=== PATIENT | male | born 1965 | race Caucasian/White ===

== ENCOUNTER 2016-09-09 13:45 | Emergency (ER) | payer BC ==
[2016-09-09] MEDS ORDERED: methylPREDNISolone Sodium Succinate 125 MG/2 ML SDV IVPUSH ONE (13:57)
[2016-09-09] MEDS ORDERED: diphenhydrAMINE 50 MG/ML SDV IVPUSH ONE (13:57)
--- NOTE | 2016-09-09 14:02 | EDM.PDOC ---
ED HPI GENERAL MEDICAL PROBLEM - General Chief Complaint: Allergic Reaction Stated Complaint: BEE STING Time Seen by Provider: 09/09/16 13:49 Source of Information: Reports: Patient History Limitations: Reports: No Limitations - History of Present Illness INITIAL COMMENTS - FREE TEXT/NARRATIVE: The patient is a 51-year-old male who comes in for evaluation for a bee sting. The patient was stung by a bee about 45 minutes ago. He does have a severe bee sting allergy. He gave himself an EpiPen autoinjector dose. States he feels completely fine now. He was stung in the left just near the left ear. States that he was able to remove the stinger. He had some feeling of tightness in his chest but use the EpiPen pretty quickly and states that all of the symptoms have resolved and he feels completely normal at this time. No throat swelling or difficulty speaking or swallowing. No wheezing. No shortness of breath. No itching. No complaint. 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: Other (see below) Other Treatments HIGHER EDUCATION ADMINISTRATOR: epi pen - Related Data Allergies Allergy/AdvReac Type Severity Reaction Status Date / Time BEE STING Allergy Bradycardia Uncoded 12/29/15 18:18 Home Meds: Home Meds EPINEPHrine [Epipen 2-Jesus] 0.3 mg IJ ASDIRECTED PRN #1 kit 12/29/15 [Rx] EPINEPHrine [Epipen] 0.3 mg IM DAILY PRN #1 unit 09/09/16 [Rx] Past Medical History HEENT History: Reports: Impaired Vision Other HEENT History: glasses Other Musculoskeletal History: left hand surgery as a child - Past Surgical History HEENT Surgical History: Reports: Naso-Sinus Surgery GI Surgical History: Reports: Hernia, Abdominal Musculoskeletal Surgical History: Reports: ORIF, Shoulder Surgery Social & Family History - Family History Family Medical History: Noncontributory - Tobacco Use Smoking Status *Q: Former Smoker Years of Tobacco use: 10 Packs/Tins Daily: 1 Month Tobacco Last Used: 1993 - Caffeine Use Caffeine Use: Reports: Coffee - Recreational Drug Use Recreational Drug Use: No - Living Situation & Occupation Living situation: Reports: , with Spouse Occupation: Employed ED ROS ALLERGIC REACTION - Review of Systems Review Of Systems: See Below Constitutional: Denies: Fever HEENT: Reports: No Symptoms Respiratory: Denies: Shortness of Breath, Cough Cardiovascular: Denies: Chest Pain Endocrine: Reports: No Symptoms GI/Abdominal: Denies: Vomiting Musculoskeletal: Reports: No Symptoms Skin: Denies: Rash Neurological: Reports: No Symptoms ED EXAM GENERAL NO PERIP PULSE - Physical Exam Exam: See Below Exam Limited By: No Limitations General Appearance: Alert, WD/WN, No Apparent Distress Eye Exam: Bilateral Eye: PERRL Ears: Normal External Exam Nose: Normal Inspection, Normal Mucosa, No Blood Throat/Mouth: Normal Inspection, Normal Oropharynx, Normal Voice, No Airway Compromise. No: Inflammation Head: Atraumatic, Normocephalic Neck: Normal Inspection, Supple, Non-Tender, Full Range of Motion Respiratory/Chest: No Respiratory Distress, Lungs Clear, Normal Breath Sounds, No Accessory Muscle Use, Chest Non-Tender Cardiovascular: Normal Peripheral Pulses, Regular Rate, Rhythm, No Edema GI/Abdominal: Soft, Non-Tender, No Distention Neurological: Alert, Oriented, Normal Cognition Psychiatric: Normal Affect, Normal Mood Skin Exam: Warm, Dry, Intact, Normal Color, No Rash Course - Vital Signs Last Recorded V/S: Last Vital Signs Temp 37.2 C 09/09/16 13:49 Pulse 98 09/09/16 13:49 Resp 16 09/09/16 13:49 BP 164/90 H 09/09/16 13:49 Pulse Ox 94 L 09/09/16 13:49 - Orders/Labs/Meds Meds: Medications Discontinued Medications Generic Name Dose Route Start Last Admin Trade Name Freq PRN Reason Stop Dose Admin Diphenhydramine HCl 50 mg 09/09/16 13:57 09/09/16 14:08 Benadryl IVPUSH 09/09/16 13:58 50 mg ONETIME ONE Administration Methylprednisolone Sodium Succinate 125 mg 09/09/16 13:57 09/09/16 14:03 Solu-Medrol IVPUSH 09/09/16 13:58 125 mg ONETIME ONE Administration - Re-Assessments/Exams Free Text/Narrative Re-Assessment/Exam: 09/09/16 14:06 Patient is currently asymptomatic. Given Solu-Medrol and Benadryl. Will observe in the emergency department. 09/09/16 15:20 Continues to feel normal, wants to go home. Refilled Epi-pen. Departure - Departure Time of Disposition: 15:21 Disposition: Home, Self-Care 01 Clinical Impression: Bee sting reaction Qualifiers: Encounter type: initial encounter Injury intent: accidental or unintentional Qualified Code(s): T63.441A - Toxic effect of venom of bees, accidental ( unintentional), initial encounter - Discharge Information Prescriptions: EPINEPHrine [Epipen] 0.3 mg IM DAILY PRN #1 unit PRN Reason: severe allergy Instructions: Bee, Wasp, or Hornet Sting Referrals: Antony Timmons MD [Primary Care Provider] - Forms: ED Department Discharge Additional Instructions: 1. Return to the ED if you feel short of breath, throat tightness, wheezing, chest pain, or any other concerning symptoms 2. Take benadryl 25mg every 6 hours as needed for itching 3. Follow up with your primary doctor as needed
[2016-09-09 15:36] VITALS: BP 127/82
== END 2016-09-09 15:34 | disposition home or self-care (01) ==
LOC: JD.ED 13:45
DX: T63.441A Toxic effect of venom of bees, accidental (unintentional), initial encounter (principal); Z91.030 Bee allergy status; Z87.891 Personal history of nicotine dependence
CPT/HCPCS: 96374; 96375; 99283; J1200; J2930; 99284

== ENCOUNTER 2017-04-05 03:01 | Emergency (ER) | payer BC, OTHER ==
[2017-04-05 03:08] VITALS: BP 155/96
[2017-04-05] MEDS ORDERED: HYDROmorphone 1 MG/ML Syringe IM ONE (03:12)
[2017-04-05] MEDS ORDERED: Diphtheria,Pertussis(Acell),Tetanus Vaccine 0.5 ML SDV IM ONE (03:16)
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
[2017-04-05] MEDS ORDERED: Silver Sulfadiazine 1% Crm 400 GM Jar TOP ONE (03:54)
== END 2017-04-05 04:39 | disposition home or self-care (01) ==
LOC: JD.ED 03:01
DX: T23.202A Burn of second degree of left hand, unspecified site, initial encounter (principal); T23.232A Burn of second degree of multiple left fingers (nail), not including thumb, initial encounter; T23.272A Burn of second degree of left wrist, initial encounter; Z87.891 Personal history of nicotine dependence; Z91.030 Bee allergy status; X03.3XXA Fall due to controlled fire, not in building or structure, initial encounter
CPT/HCPCS: 16020; 90471; 90715; 96372; 99283; A9270; J1170; 99284

== ENCOUNTER 2017-11-12 08:48 | Emergency (ER) | payer BC ==
[2017-11-12 09:07] VITALS: BP 147/92
[2017-11-12] MEDS ORDERED: Sodium Chloride 0.9% 1,000 ML IV STA (09:24)
[2017-11-12] MEDS ORDERED: Sodium Chloride 0.9% 10 ML Syringe FLUSH PRN (09:24)
[2017-11-12] MEDS ORDERED: Iopamidol 612 MG/ML 150 ML Bottle IVPUSH ONE (09:50)
--- NOTE | 2017-11-12 10:12 | CT ---
CT abdomen and pelvis Technique: Multiple axial sections were obtained from above the dome of the diaphragm inferiorly through the pubic symphysis. Intravenous contrast was utilized. No oral contrast has been given. Delayed images were also obtained through the bladder. Findings: Scattered colonic diverticuli are seen which are most prominent within the sigmoid region. There is bowel wall thickening being seen near the junction of the descending and sigmoid colon with inflammatory change compatible with diverticulitis. No diverticular abscess is seen at this time. Visualized lung bases shows nothing acute. Liver shows no focal parenchymal abnormality. Gallbladder contains no calcified gallstones. Pancreas appears within normal limits. Adrenal glands show no nodule. Kidneys show symmetric contrast enhancement without hydronephrosis or mass. Aorta shows no aneurysm with atherosclerotic change being seen. No retroperitoneal adenopathy or mesenteric abnormalities are seen. Appendix is seen and is normal. No pelvic mass or adenopathy is seen. Delayed images shows contrast within the distal ureters and within the bladder. Bone window settings were reviewed which shows mild scattered degenerative change throughout the spine. Impression: 1. Findings compatible with diverticulitis as noted above at the junction of the descending and sigmoid colon. No diverticular abscess is seen at this time. 2. Other incidental findings. Diagnostic code #3
--- NOTE | 2017-11-12 11:41 | EDM.PDOC ---
ED HPI GENERAL MEDICAL PROBLEM - General Chief Complaint: Abdominal Pain Stated Complaint: DIVERTICULITIS Time Seen by Provider: 11/12/17 09:11 Source of Information: Reports: Patient History Limitations: Reports: No Limitations - History of Present Illness INITIAL COMMENTS - FREE TEXT/NARRATIVE: The patient presents with left lower abdominal pain. This has been going on for a few days. He has no nausea, vomiting, diarrhea, or dysuria. Five years ago he was diagnosed with diverticulitis and he has been eating tomatoes and wheat lately. 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 He has no fever, chills, cough, chest pain or shortness of breath. Onset: Gradual Duration: Day(s): Location: Reports: Abdomen (left lower abdomen) Quality: Reports: Sharp Severity: Moderate Improves with: Reports: None Worsens with: Reports: None Associated Symptoms: Reports: No Other Symptoms Left Lower Abdominal Pain Score (Numeric/FACES): 4 - Related Data Allergies Allergy/AdvReac Type Severity Reaction Status Date / Time BEE STING AdvReac Bradycardia Uncoded 04/06/17 12:25 Home Meds: Home Meds EPINEPHrine [Epipen 2-Jesus] 0.3 mg IJ ASDIRECTED PRN #1 kit 12/29/15 [Rx] EPINEPHrine [Epipen] 0.3 mg IM DAILY PRN #1 unit 09/09/16 [Rx] Ibuprofen [Advil Liqui-Gels] 600 mg PO ONCALL PRN 04/05/17 [History] Levothyroxine [Synthroid] 175 mcg PO DAILY 04/05/17 [History] Ciprofloxacin HCl [Cipro] 500 mg PO BID #10 tablet 11/12/17 [Rx] Ciprofloxacin HCl [Cipro] 500 mg PO BID #14 tablet 11/12/17 [Rx] metroNIDAZOLE [Flagyl] 500 mg PO Q8H #21 tab 11/12/17 [Rx] Past Medical History HEENT History: Reports: Impaired Vision Other HEENT History: glasses Gastrointestinal History: Reports: Other (See Below) Other Gastrointestinal History: diverticulitis Other Musculoskeletal History: left hand surgery as a child Endocrine/Metabolic History: Reports: Hyperthyroidism - Past Surgical History HEENT Surgical History: Reports: Naso-Sinus Surgery GI Surgical History: Reports: Hernia, Abdominal Musculoskeletal Surgical History: Reports: ORIF, Shoulder Surgery Social & Family History - Family History Family Medical History: Noncontributory - Tobacco Use Smoking Status *Q: Never Smoker Second Hand Smoke Exposure: No - Caffeine Use Caffeine Use: Reports: Coffee - Recreational Drug Use Recreational Drug Use: No - Living Situation & Occupation Living situation: Reports: , with Spouse Occupation: Employed ED ROS GENERAL - Review of Systems Review Of Systems: See Below Constitutional: Reports: No Symptoms HEENT: Reports: No Symptoms Respiratory: Reports: No Symptoms Cardiovascular: Reports: No Symptoms Endocrine: Reports: No Symptoms GI/Abdominal: Reports: Abdominal Pain. Denies: Diarrhea, Nausea, Vomiting : Reports: No Symptoms Musculoskeletal: Reports: No Symptoms ED EXAM, GI/ABD - Physical Exam Exam: See Below Exam Limited By: No Limitations General Appearance: Alert, No Apparent Distress Ears: Normal External Exam Nose: Normal Inspection Head: Atraumatic, Normocephalic Neck: Normal Inspection Respiratory/Chest: No Respiratory Distress, Lungs Clear, Normal Breath Sounds Cardiovascular: Regular Rate, Rhythm, No Edema, No Murmur GI/Abdominal Exam: Soft, No Organomegaly, No Mass, Tender (Mild pain upon palpation to the left lower abdomen) Course - Vital Signs Last Recorded V/S: Last Vital Signs Temp 98.2 F 11/12/17 09:01 Pulse 69 11/12/17 09:01 Resp 20 11/12/17 09:01 BP 147/92 H 11/12/17 09:01 Pulse Ox 94 L 11/12/17 09:01 - Orders/Labs/Meds Orders: Active Orders 24 hr Category Date Time Status Peripheral IV Care [RC] . DIRECTED Care 11/12/17 09:24 Active Sodium Chloride 0.9% [Saline Flush] Med 11/12/17 09:24 Active 10 ml FLUSH ASDIRECTED PRN Peripheral IV Insertion Adult [OM.PC] Stat Oth 11/12/17 09:24 Ordered Medication Orders Sodium Chloride (Saline Flush) 10 ml FLUSH ASDIRECTED PRN PRN Reason: Keep Vein Open Last Admin: 11/12/17 09:37 Dose: 10 ml Labs: Laboratory Tests 11/12/17 11/12/17 Range/Units 09:10 09:10 WBC 9.42 H (4.23-9.07) K/mm3 RBC 5.08 (4.63-6.08) M/mm3 Hgb 14.8 (13.7-17.5) gm/L Hct 43.2 (40.1-51.0) % MCV 85.0 (79.0-92.2) fl MCH 29.1 (25.7-32.2) pg MCHC 34.3 (32.2-35.5) g/dl RDW Std Deviation 41.1 (35.1-43.9) fL Plt Count 238 (163-337) K/mm3 MPV 10.0 (9.4-12.3) fl Neut % (Auto) 69.7 H (34.0-67.9) % Lymph % (Auto) 15.8 L (21.8-53.1) % [place] % (Auto) 13.3 H (5.3-12.2) % Eos % (Auto) 0.8 (0.8-7.0) Baso % (Auto) 0.2 (0.1-1.2) % Neut # (Auto) 6.56 H (1.78-5.38) K/mm3 Lymph # (Auto) 1.49 (1.32-3.57) K/mm3 [place] # (Auto) 1.25 H (0.30-0.82) K/mm3 Eos # (Auto) 0.08 (0.04-0.54) K/mm3 Baso # (Auto) 0.02 (0.01-0.08) K/mm3 Sodium 137 (136-145) mEq/L Potassium 4.2 (3.5-5.1) mEq/L Chloride 104 (98-107) mEq/L Carbon Dioxide 24 (21-32) mEq/L Anion Gap 13.2 (5-15) BUN 13 (7-18) mg/dL Creatinine 1.1 (0.7-1.3) mg/dL Est Cr Clr Drug Dosing 88.78 mL/min Estimated GFR (MDRD) > 60 (>60) mL/min BUN/Creatinine Ratio 11.8 L (14-18) Glucose 96 (74-106) mg/dL Calcium 9.0 (8.5-10.1) mg/dL Total Bilirubin 1.0 (0.2-1.0) mg/dL AST 19 (15-37) U/L ALT 35 (16-63) U/L Alkaline Phosphatase 94 (46-116) U/L Total Protein 7.9 (6.4-8.2) g/dl Albumin 4.0 (3.4-5.0) g/dl Globulin 3.9 gm/dL Albumin/Globulin Ratio 1.0 (1-2) Lipase 578 H (73-393) U/L Meds: Medications Generic Name Dose Route Start Last Admin Trade Name Susi PRN Reason Stop Dose Admin Sodium Chloride 10 ml 11/12/17 09:24 11/12/17 09:37 Saline Flush FLUSH 10 ml ASDIRECTED PRN Administration Keep Vein Open Discontinued Medications Generic Name Dose Route Start Last Admin Trade Name Susi PRN Reason Stop Dose Admin Sodium Chloride 1,000 mls @ 1,000 mls/hr 11/12/17 09:24 11/12/17 09:36 Normal Saline IV 11/12/17 10:23 1,000 mls/hr .BOLUS STA Administration Iopamidol 125 ml 11/12/17 09:50 11/12/17 09:51 Isovue-300 (61%) IVPUSH 11/12/17 09:51 125 ml ONETIME ONE Administration - Re-Assessments/Exams Free Text/Narrative Re-Assessment/Exam: 11/12/17 11:35 I ordered an IV NS 1L bolus, labs and a CT of his abdomen and pelvis. His WBC 9.45. His CMP. His lipase was elevated at 578. He has never had pancreatitis before. His CT shows findings compatible with diverticulitis at the junction of the descending and sigmoid colon. No diverticular abscess is seen at this time. He feels good but I will need to treat him for the diverticulitis. He has no pain at the left upper quadrant. I am not sure why is lipase is elevated. I will have him follow up with his doctor. Departure - Departure Time of Disposition: 11:45 Disposition: Home, Self-Care 01 Condition: Good Clinical Impression: Diverticulitis Pancreatitis Qualifiers: Chronicity: acute Pancreatitis type: other Acute pancreatitis complication: unspecified Qualified Code(s): K85.80 - Other acute pancreatitis without necrosis or infection - Discharge Information *PRESCRIPTION DRUG MONITORING PROGRAM REVIEWED*: No *COPY OF PRESCRIPTION DRUG MONITORING REPORT IN PATIENT NICHOLAS: No Prescriptions: Ciprofloxacin HCl [Cipro] 500 mg PO BID #10 tablet Ciprofloxacin HCl [Cipro] 500 mg PO BID #14 tablet metroNIDAZOLE [Flagyl] 500 mg PO Q8H #21 tab Referrals: Antony Timmons MD [Primary Care Provider] - Additional Instructions: Drink plenty of fluids. Take the cipro 2 times per day for 7 days. Take the flagyl 500mg 3 times per day for 7 days. The flagyl can make you sick if you drink alcohol. So be careful. Your lipase a pancreatic enzyme was elevated. Follow up with your doctor in about a week to have that rechecked. Please return if you are worse. - My Orders Last 24 Hours: My Active Orders 11/12/17 09:24 Peripheral IV Care [RC] . DIRECTED Sodium Chloride 0.9% [Saline Flush] 10 ml FLUSH ASDIRECTED PRN Peripheral IV Insertion Adult [OM.PC] Stat - Assessment/Plan Last 24 Hours: My Active Orders 11/12/17 09:24 Peripheral IV Care [RC] . DIRECTED Sodium Chloride 0.9% [Saline Flush] 10 ml FLUSH ASDIRECTED PRN Peripheral IV Insertion Adult [OM.PC] Stat
== END 2017-11-12 11:55 | disposition home or self-care (01) ==
LOC: JD.ED 08:48
DX: K57.32 Diverticulitis of large intestine without perforation or abscess without bleeding (principal); K85.80 Other acute pancreatitis without necrosis or infection; Z91.030 Bee allergy status; E05.90 Thyrotoxicosis, unspecified without thyrotoxic crisis or storm; Z79.899 Other long term (current) drug therapy
CPT/HCPCS: 36415; 74177; 80053; 83690; 85025; 96360; 99284; J7040; J7050; Q9967

== ENCOUNTER 2018-11-04 19:59 | Emergency (ER) | payer BC ==
[2018-11-04 20:08] VITALS: BP 158/105
[2018-11-04] MEDS ORDERED: HYDROmorphone 1 MG/ML Syringe IVPUSH ONE (20:30)
[2018-11-04] MEDS ORDERED: HYDROmorphone 0.5 MG/0.5 ML Syringe IVPUSH ONE ×2 (21:23→22:02)
--- NOTE | 2018-11-04 22:27 | EDM.PDOC ---
ED HPI GENERAL MEDICAL PROBLEM - General Chief Complaint: Upper Extremity Injury/Pain Stated Complaint: ARM INJURY Time Seen by Provider: 11/04/18 20:16 Source of Information: Reports: Patient, RN Notes Reviewed - History of Present Illness INITIAL COMMENTS - FREE TEXT/NARRATIVE: 53-year-old male comes in with right wrist injury after falling off of the gate. He states 2 of his bulls were in a coral, fighting causing him to lose his balance. He is not exactly sure how he came down but thinks he must of come down on the right hand. He also does have mild discomfort of the right upper chest. However the major pain is right wrist with obvious mild deformity. Pain is worse with any type of motion of the hand or wrist. He denies head injury or LOC. No neck or back discomfort. He is not short of breath. No abdominal pain nausea or vomiting. Right Wrist Pain Score (Numeric/FACES): 10 - Related Data Allergies Allergy/AdvReac Type Severity Reaction Status Date / Time BEE STING AdvReac Bradycardia Uncoded 11/04/18 20:09 Home Meds: Home Meds EPINEPHrine [Epipen 2-Jesus] 0.3 mg IJ ASDIRECTED PRN #1 kit 12/29/15 [Rx] Levothyroxine [Synthroid] 175 mcg PO DAILY 04/05/17 [History] Past Medical History HEENT History: Reports: Impaired Vision Other HEENT History: glasses Gastrointestinal History: Reports: Other (See Below) Other Gastrointestinal History: diverticulitis Other Musculoskeletal History: left hand surgery as a child Endocrine/Metabolic History: Reports: Hyperthyroidism - Past Surgical History HEENT Surgical History: Reports: Naso-Sinus Surgery GI Surgical History: Reports: Hernia, Abdominal Musculoskeletal Surgical History: Reports: ORIF, Shoulder Surgery Social & Family History - Family History Family Medical History: Noncontributory - Tobacco Use Smoking Status *Q: Never Smoker - Caffeine Use Caffeine Use: Reports: Coffee - Recreational Drug Use Recreational Drug Use: No - Living Situation & Occupation Living situation: Reports: , with Spouse Occupation: Employed Review of Systems - Review of Systems Review Of Systems: See Below Constitutional: Reports: No Symptoms Eyes: Reports: No Symptoms Ears: Reports: No Symptoms Nose: Reports: No Symptoms Respiratory: Denies: Shortness of Breath, Pleuritic Chest Pain Cardiovascular: Reports: Chest Pain GI/Abdominal: Denies: Abdominal Pain (Mild right upper chest), Nausea, Vomiting Musculoskeletal: Reports: Joint Pain (Right wrist) Skin: Reports: No Symptoms Neurological: Denies: Numbness, Tingling, Weakness ED EXAM, GENERAL - Physical Exam Exam: See Below General Appearance: Alert, Moderate Distress Ears: Normal External Exam Nose: Normal Inspection Throat/Mouth: Normal Inspection Head: Atraumatic Neck: Supple Respiratory/Chest: No Respiratory Distress, Lungs Clear, Normal Breath Sounds, Other (Very mild tenderness right upper chest) Cardiovascular: Regular Rate, Rhythm Extremities: Joint Swelling (There is some swelling moderate diffuse tenderness right wrist with very slight dorsal deformity), Limited Range of Motion (Right wrist) Neurological: Alert, Oriented, No Motor/Sensory Deficits Skin Exam: Warm, Dry, Normal Color ED TRAUMA EXTREMITY PROCEDURES - Splinting Right Upper Extremity Splint Site: Right wrist and forearm Pre-Procedure NV Status: Normal Post-Procedure NV Status: Normal Splint Material: Fiberglass Splint Design: Volar Applied & Form Fitted By: Provider Provider Post-Splint Application NV Check: NV Status Normal Course - Vital Signs Last Recorded V/S: Last Vital Signs Temp 98.7 F 11/04/18 20:07 Pulse 84 11/04/18 20:07 Resp 16 11/04/18 20:07 BP 158/105 H 11/04/18 20:07 Pulse Ox 95 11/04/18 20:07 - Orders/Labs/Meds Orders: Active Orders 24 hr Category Date Time Status Wrist Comp Min 3V Rt [CR] Stat Exams 11/04/18 20:12 Taken Meds: Medications Discontinued Medications Generic Name Dose Route Start Last Admin Trade Name Susi PRN Reason Stop Dose Admin Hydromorphone HCl 1 mg 11/04/18 20:30 11/04/18 20:35 Dilaudid IVPUSH 11/04/18 20:31 0.5 mg ONETIME ONE Administration Hydromorphone HCl 0.5 mg 11/04/18 21:23 11/04/18 21:28 Dilaudid IVPUSH 11/04/18 21:24 0.5 mg ONETIME ONE Administration Hydromorphone HCl 0.5 mg 11/04/18 22:02 11/04/18 22:06 Dilaudid IVPUSH 11/04/18 22:03 0.5 mg ONETIME ONE Administration - Re-Assessments/Exams Free Text/Narrative Re-Assessment/Exam: 11/05/18 02:57 X-rays of the wrist do show comminuted fracture distal radius with extension of one or 2 lines up into the wrist joint, no major displacement, probable slight dorsal angulation Departure - Departure Time of Disposition: 22:22 Disposition: Home, Self-Care 01 Condition: Fair Clinical Impression: Fracture of radius and ulna Qualifiers: Encounter type: initial encounter Fracture type: closed Laterality: right Qualified Code(s): S52.91XA - Unspecified fracture of right forearm, initial encounter for closed fracture - Discharge Information Instructions: Radial Fracture Referrals: Antony Timmons MD [Primary Care Provider] - Forms: ED Department Discharge Additional Instructions: Fiberglass wrist splint, ice packs and elevation to help keep swelling down, arm sling if needed for support, avoid further injury. Percocet 1 tab every 6-8 hours as needed for severe pain, for less severe pain you can take Tylenol 1000 mg up to 3 times daily or take a 500 mg Tylenol along with one half tablet Percocet to avoid some of the dizziness and side effects of the Percocet. Do not drive or operate equipment when taking the Percocet. See Dr. Pickard, Orthopedist tomorrow or early next week. Call [phone] for appointment. - My Orders Last 24 Hours: My Active Orders 11/04/18 20:12 Wrist Comp Min 3V Rt [CR] Stat - Assessment/Plan Last 24 Hours: My Active Orders 11/04/18 20:12 Wrist Comp Min 3V Rt [CR] Stat
--- NOTE | 2018-11-05 08:16 | CR ---
Chest: PA view of the chest was obtained. Comparison: No prior chest imaging is available. Heart size and mediastinum are normal. Lungs are clear with no acute parenchymal change. Bony structures are grossly intact. Impression: 1. Nothing acute is appreciated on PA chest x-ray. Diagnostic code #1
--- NOTE | 2018-11-05 08:16 | CR ---
Right wrist: Four views of the right wrist were obtained. Comparison: No prior wrist exam. Comminuted fracture is identified within the distal radius with articular extension. Slight displacement is seen with mild articular step-off and posterior impaction. Fracture is also noted within the ulnar styloid. Plate and screws affix an old healed fifth metacarpal fracture. No additional bony abnormality is seen. Soft tissue swelling is present. Impression: 1. Comminuted and mildly displaced distal radial fracture with articular extension. 2. Ulnar styloid avulsion fracture also. 3. Other incidental findings. Diagnostic code #3
== END 2018-11-04 22:40 | disposition home or self-care (01) ==
LOC: JD.ED 19:59
DX: S52.501A Unspecified fracture of the lower end of right radius, initial encounter for closed fracture (principal); S52.611A Displaced fracture of right ulna styloid process, initial encounter for closed fracture; R07.9 Chest pain, unspecified; Z91.030 Bee allergy status; Z79.899 Other long term (current) drug therapy; W19.XXXA Unspecified fall, initial encounter
CPT/HCPCS: 29125; 71045; 73110; 96374; 96376; 99283; J1170; 99284

== ENCOUNTER 2018-11-05 10:29 | Emergency (ER) | payer BC ==
[2018-11-05 10:40] VITALS: BP 135/83
[2018-11-05] MEDS ORDERED: Sodium Chloride 0.9% 10 ML Syringe FLUSH PRN (11:02)
[2018-11-05] MEDS ORDERED: HYDROmorphone 1 MG/ML Syringe IVPUSH ONE (11:03)
--- NOTE | 2018-11-05 13:02 | EDM.PDOC ---
ED HPI GENERAL MEDICAL PROBLEM - General Chief Complaint: Upper Extremity Injury/Pain Stated Complaint: PAIN CONTROL NEEDED FOR ARM INJURY Time Seen by Provider: 11/05/18 10:49 Source of Information: Reports: Patient History Limitations: Reports: No Limitations - History of Present Illness INITIAL COMMENTS - FREE TEXT/NARRATIVE: The patient presents with right wrist pain. He was seen here last night and he had a splint put on. He brought a bull back to his [place] last night and he started to fight with another bull and he was on the gate and he slipped off and lanced on his right arm. He has a distal radius fracture and ulnar styloid fracture. He has no other injuries. A splint was applied an the patient was sent home some percocet but he did not get any sleep or relief last night. Family called Dr Pickard's office and they told him to come in and be seen. Onset: Sudden Duration: Day(s): (Last night) Location: Reports: Upper Extremity, Right Quality: Reports: Sharp Severity: Severe Improves with: Reports: Immobilization Worsens with: Reports: Movement Context: Reports: Trauma (Fall) Associated Symptoms: Reports: No Other Symptoms Right Lower Arm Pain Score (Numeric/FACES): 8 - Related Data Allergies Allergy/AdvReac Type Severity Reaction Status Date / Time BEE STING AdvReac Bradycardia Uncoded 11/05/18 10:40 Home Meds: Home Meds EPINEPHrine [Epipen 2-Jesus] 0.3 mg IJ ASDIRECTED PRN #1 kit 12/29/15 [Rx] Levothyroxine [Synthroid] 175 mcg PO DAILY 04/05/17 [History] oxyCODONE HCl/Acetaminophen [Percocet 5-325 mg Tablet] 1 - 2 each PO Q6HR PRN # 20 tablet 11/05/18 [Rx] Past Medical History HEENT History: Reports: Impaired Vision Other HEENT History: glasses Gastrointestinal History: Reports: Other (See Below) Other Gastrointestinal History: diverticulitis Other Musculoskeletal History: left hand surgery as a child Endocrine/Metabolic History: Reports: Hyperthyroidism - Past Surgical History HEENT Surgical History: Reports: Naso-Sinus Surgery GI Surgical History: Reports: Hernia, Abdominal Musculoskeletal Surgical History: Reports: ORIF, Shoulder Surgery Social & Family History - Family History Family Medical History: Noncontributory - Tobacco Use Smoking Status *Q: Never Smoker - Caffeine Use Caffeine Use: Reports: Coffee - Recreational Drug Use Recreational Drug Use: No - Living Situation & Occupation Living situation: Reports: , with Spouse Occupation: Employed Review of Systems - Review of Systems Review Of Systems: See Below Constitutional: Reports: No Symptoms Eyes: Reports: No Symptoms Ears: Reports: No Symptoms Nose: Reports: No Symptoms Mouth/Throat: Reports: No Symptoms Respiratory: Reports: No Symptoms Cardiovascular: Reports: No Symptoms GI/Abdominal: Reports: No Symptoms Genitourinary: Reports: No Symptoms Musculoskeletal: Reports: Other (Right wrist pain) ED EXAM, GENERAL - Physical Exam Exam: See Below Exam Limited By: No Limitations General Appearance: Alert, No Apparent Distress Ears: Normal External Exam Nose: Normal Inspection Extremities: Other (Pain upon palpation to the right wrist with edema. Good capillary refill distally. He has some numbness distally.) ED TRAUMA EXTREMITY PROCEDURES - Splinting Right Upper Extremity Splint Site: right wrist Pre-Procedure NV Status: Normal Post-Procedure NV Status: Normal Splint Material: Fiberglass Splint Design: Volar Applied & Form Fitted By: Provider Provider Post-Splint Application NV Check: NV Status Normal, Good Position Complications: No Course - Vital Signs Last Recorded V/S: Last Vital Signs Temp 97.3 F 11/05/18 10:37 Pulse 56 L 11/05/18 10:37 Resp 16 11/05/18 10:37 BP 135/83 11/05/18 10:37 Pulse Ox 95 11/05/18 10:37 - Orders/Labs/Meds Orders: Active Orders 24 hr Category Date Time Status Peripheral IV Care [RC] . DIRECTED Care 11/05/18 11:02 Active Ketorolac [Toradol] Med 11/05/18 13:55 Once 30 mg IVPUSH ONETIME ONE Sodium Chloride 0.9% [Saline Flush] Med 11/05/18 11:02 Active 10 ml FLUSH ASDIRECTED PRN Peripheral IV Insertion Adult [OM.PC] Routine Oth 11/05/18 11:02 Ordered Medication Orders Sodium Chloride (Saline Flush) 10 ml FLUSH ASDIRECTED PRN PRN Reason: Keep Vein Open Last Admin: 11/05/18 11:16 Dose: 10 ml Meds: Medications Generic Name Dose Route Start Last Admin Trade Name Freq PRN Reason Stop Dose Admin Sodium Chloride 10 ml 11/05/18 11:02 11/05/18 11:16 Saline Flush FLUSH 10 ml ASDIRECTED PRN Administration Keep Vein Open Discontinued Medications Generic Name Dose Route Start Last Admin Trade Name Susi PRN Reason Stop Dose Admin Hydromorphone HCl 1 mg 11/05/18 11:03 11/05/18 11:16 Dilaudid IVPUSH 11/05/18 11:04 1 mg ONETIME ONE Administration - Re-Assessments/Exams Free Text/Narrative Re-Assessment/Exam: 11/05/18 13:03 I did remove the splint and my nurse started an IV and I gave him some dilaudid. I did call Dr Pickard and his office is trying to find a time for surgery. It appears he will be having surgery on the . He is resting now. 11/05/18 13:56 I put a new splint on and he feels better. I am not sure what the problem was. There may have been more swelling. The splint was in a good position. Departure - Departure Time of Disposition: 14:00 Disposition: Home, Self-Care 01 Condition: Good Clinical Impression: Fracture of radius and ulna Qualifiers: Encounter type: initial encounter Fracture type: closed Laterality: right Qualified Code(s): S52.91XA - Unspecified fracture of right forearm, initial encounter for closed fracture - Discharge Information *PRESCRIPTION DRUG MONITORING PROGRAM REVIEWED*: No *COPY OF PRESCRIPTION DRUG MONITORING REPORT IN PATIENT NICHOLAS: No Prescriptions: oxyCODONE HCl/Acetaminophen [Percocet 5-325 mg Tablet] 1 - 2 each PO Q6HR PRN # 20 tablet PRN Reason: Pain Referrals: Antony Timmons MD [Primary Care Provider] - Forms: ED Department Discharge Additional Instructions: Keep icing your arm and elevate it above your heart. Your surgery is scheduled for the . They should call you with specifics. Please return if you are worse. - My Orders Last 24 Hours: My Active Orders 11/05/18 11:02 Peripheral IV Care [RC] . DIRECTED Sodium Chloride 0.9% [Saline Flush] 10 ml FLUSH ASDIRECTED PRN Peripheral IV Insertion Adult [OM.PC] Routine 11/05/18 13:55 Ketorolac [Toradol] 30 mg IVPUSH ONETIME ONE - Assessment/Plan Last 24 Hours: My Active Orders 11/05/18 11:02 Peripheral IV Care [RC] . DIRECTED Sodium Chloride 0.9% [Saline Flush] 10 ml FLUSH ASDIRECTED PRN Peripheral IV Insertion Adult [OM.PC] Routine 11/05/18 13:55 Ketorolac [Toradol] 30 mg IVPUSH ONETIME ONE
[2018-11-05] MEDS ORDERED: Ketorolac 30 MG/ML SDV IVPUSH ONE (13:55)
== END 2018-11-05 14:20 | disposition home or self-care (01) ==
LOC: JD.ED 10:29
DX: S52.91XD Unspecified fracture of right forearm, subsequent encounter for closed fracture with routine healing (principal); S52.201D Unspecified fracture of shaft of right ulna, subsequent encounter for closed fracture with routine healing; E05.90 Thyrotoxicosis, unspecified without thyrotoxic crisis or storm; Z91.030 Bee allergy status; Z79.899 Other long term (current) drug therapy; W01.0XXD Fall on same level from slipping, tripping and stumbling without subsequent striking against object, subsequent encounter
CPT/HCPCS: 29125; 96374; 96375; 99282; J1170; J1885; 99283

== ENCOUNTER 2018-11-11 06:22 | Day surgery (SDC) | payer BC ==
[~2018-11-11 06:22] MED LIST: Lactated Ringers 1,000 ML IV SCH; Lidocaine 1%/Sod Bicarbonate in NS 8.4% 1 ML Syringe IDERM PRN; Sodium Chloride 0.9% 10 ML Syringe FLUSH PRN
[2018-11-11] MEDS ORDERED: Bupivacaine 0.25% 10 ML SDV ONE (06:57)
--- NOTE | 2018-11-11 07:33 | PCM.PREANE ---
Preanesthetic Assessment - Anesthesia/Transfusion/Family Hx Anesthesia History: Prior Anesthesia Without Reaction Family History of Anesthesia Reaction: No Transfusion History: No Prior Transfusion(s) Intubation History: Unknown - Review of Systems General: No Symptoms Pulmonary: No Symptoms (chew tobacco:quit 2018 quit smoking 1993 ETOH: occasionally) Cardiovascular: No Symptoms Gastrointestinal: No Symptoms (History of diverticulosis) Neurological: No Symptoms Other: Reports: None, Thyroid Problems (Hypothyroidism) - Physical Assessment NPO Status Date: 11/10/18 NPO Status Time: 20:30 Vital Signs: Last Vital Signs Temp 36.7 C 11/11/18 06:30 Pulse 74 11/11/18 06:30 Resp 16 11/11/18 06:30 BP 126/87 11/11/18 06:30 Pulse Ox 95 11/11/18 06:30 Height: 1.83 m Weight: 96.615 kg ASA Class: 2 Mental Status: Alert & Oriented x3 Airway Class: Mallampati = 2 Dentition: Reports: Normal Dentition, Caries Thyro-Mental Finger Breadths: 3 Mouth Opening Finger Breadths: 3 ROM/Head Extension: Full Lungs: Clear to Auscultation, Normal Respiratory Effort Cardiovascular: Regular Rate, Regular Rhythm, No Murmurs - Lab Values: Laboratory Last Values MRSA (PCR) Negative 11/10/18 13:50 All labs reviewed and noted and within acceptable ranges to proceed with scheduled procedure. - Allergies Allergies/Adverse Reactions: Allergies Allergy/AdvReac Type Severity Reaction Status Date / Time BEE STING AdvReac Anaphylactic Uncoded 11/11/18 06:51 Shock - Anesthesia Plan Pre-Op Medication Ordered: None - Acknowledgements Anesthesia Type Planned: General Anesthesia Pt an Appropriate Candidate for the Planned Anesthesia: Yes Alternatives and Risks of Anesthesia Discussed w Pt/Guardian: Yes Pt/Guardian Understands and Agrees with Anesthesia Plan: Yes PreAnesthesia Questionnaire HEENT History: Reports: Hard of Hearing, Impaired Vision Other HEENT History: glasses, has hearing aids Cardiovascular History: Reports: None Respiratory History: Reports: None Gastrointestinal History: Reports: Other (See Below) Other Gastrointestinal History: diverticulitis Genitourinary History: Reports: None MEDICAL CLINIC MANAGER History: Reports: None Other Musculoskeletal History: left hand surgery as a child Neurological History: Reports: None Psychiatric History: Reports: None Endocrine/Metabolic History: Reports: Hyperthyroidism Hematologic History: Reports: None Immunologic History: Reports: None Oncologic (Cancer) History: Reports: None Dermatologic History: Reports: None - Past Surgical History HEENT Surgical History: Reports: Naso-Sinus Surgery Cardiovascular Surgical History: Reports: None Respiratory Surgical History: Reports: None GI Surgical History: Reports: Hernia, Abdominal Female Surgical History: Reports: None Male Surgical History: Reports: None Endocrine Surgical History: Reports: None Neurological Surgical History: Reports: None Musculoskeletal Surgical History: Reports: ORIF, Shoulder Surgery Oncologic Surgical History: Reports: None - SUBSTANCE USE Smoking Status *Q: Former Smoker Recreational Drug Use History: No - HOME MEDS Home Medications: Home Meds Acetaminophen/HYDROcodone [[place] 325-5 MG] 1 - 2 tab PO Q6H PRN #40 tablet 11/11 [Rx] Cyclobenzaprine [Flexeril] 10 mg PO BID PRN #30 tab 11/11/18 [Rx] - CURRENT (IN HOUSE) MEDS Current Meds: Current Medications Lactated Ringer's (Ringers, Lactated) 1,000 mls @ 125 mls/hr IV ASDIRECTED TERENCE Stop: 11/11/18 23:00 Last Admin: 11/11/18 06:45 Dose: 125 mls/hr Lidocaine/Sodium Bicarbonate (Buffered Lidocaine 1% In Ns 8.4%) 0.25 ml IDERM ONETIME PRN PRN Reason: Prior to IV Start Stop: 11/11/18 18:00 Last Admin: 11/11/18 06:45 Dose: 0.25 ml Sodium Chloride (Saline Flush) 10 ml FLUSH ASDIRECTED PRN PRN Reason: Keep Vein Open Stop: 11/11/18 18:00 Discontinued Medications Bupivacaine HCl (Sensorcaine-Mpf 0.25%) Confirm Administered Dose 30 ml .ROUTE .STK-MED ONE Stop: 11/11/18 06:58
[2018-11-11] MEDS ORDERED: Lidocaine 1% 2 ML ONE ×2 (07:57)
[2018-11-11] MEDS ORDERED: Propofol 200 MG/20 ML SDV ONE (07:57)
[2018-11-11] MEDS ORDERED: fentaNYL 250 MCG/5 ML SDV ONE (07:57)
[2018-11-11] MEDS ORDERED: ceFAZolin 1 GM Vial ONE ×2 (07:58)
[2018-11-11] MEDS ORDERED: Midazolam 1 MG/ML 2 ML SDV ONE (07:58)
[2018-11-11] MEDS ORDERED: Ondansetron 4 MG/2 ML SDV ONE (08:25)
[2018-11-11] MEDS ORDERED: Lactated Ringers 1,000 ML ONE (08:33)
[2018-11-11] MEDS ORDERED: Ondansetron 4 MG/2 ML SDV IVPUSH PRN (08:40)
[2018-11-11] MEDS ORDERED: fentaNYL 100 MCG/2 ML SDV IVPUSH PRN (08:40)
[2018-11-11] MEDS ORDERED: fentaNYL 100 MCG/2 ML SDV ONE (08:56)
[2018-11-11] MEDS ORDERED: Ketorolac 30 MG/ML SDV ONE (09:20)
--- NOTE | 2018-11-11 09:55 | PCM.POSTAN ---
POST ANESTHESIA ASSESSMENT - MENTAL STATUS Mental Status: Alert, Oriented - VITAL SIGNS Vital Signs: Last Vital Signs Temp 36.7 C 11/11/18 06:30 Pulse 74 11/11/18 06:30 Resp 16 11/11/18 06:30 BP 126/87 11/11/18 06:30 Pulse Ox 95 11/11/18 06:30 - RESPIRATORY Respiratory Status: Respiratory Rate WNL, Airway Patent, O2 Saturation Stable - CARDIOVASCULAR CV Status: Pulse Rate WNL, Blood Pressure Stable - GASTROINTESTINAL GI Status: No Symptoms - PAIN Pain Score: 0 - POST OP HYDRATION Hydration Status: Adequate & Stable
--- NOTE | 2018-11-11 09:58 | CR ---
Right wrist: Seven fluoroscopic spot views were obtained of the right wrist. Study obtained utilizing C-arm device in the operating room. Comparison: Previous right wrist study of 11/04/18. Previous wrist fracture shows reduction. Fixation seen with plate and screws. Final films show anatomic alignment. Fracture is noted within the ulnar styloid process. Fluoroscopy time is given as 13.3 seconds. Impression: 1. Procedural study as described above. Diagnostic code #2
[2018-11-11] MEDS: HYDROmorphone 0.5 MG/0.5 ML Syringe IVPUSH PRN ×2 (10:03→12:28)
[2018-11-11] MEDS ORDERED: Acetaminophen/HYDROcodone 325-5 MG Tab PO PRN (10:11)
--- NOTE | 2018-11-11 10:33 | PCM48HPAN ---
Post Anesthesia Note - EVALUATION WITHIN 48HRS OF ANESTHETIC Vital Signs in Normal Range: Yes Patient Participated in Evaluation: Yes Respiratory Function Stable: Yes Airway Patent: Yes Cardiovascular Function Stable: Yes Hydration Status Stable: Yes Pain Control Satisfactory: Yes Nausea and Vomiting Control Satisfactory: Yes Mental Status Recovered: Yes Vital Signs: Last Vital Signs Temp 36.5 C 11/11/18 09:48 Pulse 74 11/11/18 06:30 Resp 8 L 11/11/18 10:30 BP 127/80 11/11/18 10:30 Pulse Ox 93 L 11/11/18 10:30
[2018-11-11 13:22] VITALS: BP 141/83
--- NOTE | 2018-11-16 10:07 | PCM.OPNOTE ---
- General Post-Op/Procedure Note Date of Surgery/Procedure: 11/11/18 Operative Procedure(s): open reduction internal fixation of right distal radius fracture of three more fragments Pre Op Diagnosis: comminuted right distal radius fracture Post-Op Diagnosis: Same Anesthesia Technique: General LMA, Local Primary Surgeon: Tyrese Pickard Anesthesia Provider: Enriqueta Anguiano Computer Systems Hardware Analyst: Debi Hassan in mLs: 1 Complications: None Condition: Good
--- NOTE | 2018-11-16 10:48 | OR ---
DATE OF OPERATION: 11/11/2018 SURGEON: Tyrese Pickard MD OPERATION PERFORMED: Open reduction and internal fixation of right distal radius fracture of three or more fragments. PREOPERATIVE DIAGNOSIS: Comminuted right distal radius fracture. POSTOPERATIVE DIAGNOSIS: Comminuted right distal radius fracture. ANESTHESIA: General LMA with local. ANESTHESIA PROVIDER: Enriqueta Anguiano CRNA. TELEVISION DIRECTOR: Debi Hassan PA-C. ESTIMATED BLOOD LOSS: 1 mL. COMPLICATIONS: None. CONDITION: Stable. IMPLANTS: Clutier volar distal radius locking plate. DESCRIPTION OF PROCEDURE: The patient was identified in the preoperative holding area where proper site was marked and identified by the surgeon. The patient was taken back to the operating theater, where after adequate anesthesia, the patient's right upper extremity sterilely prepped and draped in the usual sterile fashion. OR time- out was performed. The patient received 2 g of IV Ancef. The right upper extremity was then exsanguinated and tourniquet was insufflated to 220 mmHg. A standard volar approach of Tyree was done to the FCR tendon sheath which was incised. The floor of the FCR tendon sheath was then incised. The FCR tendon was retracted ulnarly to protect the median nerve. The pronator quadratus was then identified, was subperiosteally elevated off the distal radius. This fracture site was identified. A curette was used to remove fracture hematoma. At this time, adequate saline was irrigated through the wrist. C-arm fluoroscopy was then used for provisional reduction. A Yessenia intermediate standard volar distal radius plate was then placed under C-arm fluoroscopy and found to have adequate positioning. K-wire was then placed to hold it into place. Reduction was then done correcting the impacted displacement of the lunate fossa. Once this was found to have adequate reduction, a nonlocking screw was placed distally in the scaphoid fragment and a locking screw was placed in the lunate fragment of the distal radius. Another two locking screws were then placed distally, one in each of the scaphoid and lunate fragments of the distal radius. It was found to have adequate anatomic reduction of both height, volar tilt, and inclination. A nonlocking screw was then placed in the shaft to make sure the plate was adherent to the bone and then two more nonlocking screws were placed proximal to that. It was found have an anatomic reduction on both AP, lateral, and 23-degree lateral views. Adequate saline was then irrigated through the wound. 3-0 Vicryl was used for closure of subcutaneous and Monocryl was used for closure of the skin. The patient had a sterile soft dressing applied and was sent to PACU in stable condition. BETO /[id number]
== END 2018-11-11 13:20 | disposition home or self-care (01) ==
LOC: JD.SDS 06:22
PROVIDERS: ATTEND Orthopaedic Surgery
DX: S52.511A Displaced fracture of right radial styloid process, initial encounter for closed fracture (principal); E05.90 Thyrotoxicosis, unspecified without thyrotoxic crisis or storm; X58.XXXA Exposure to other specified factors, initial encounter; Z91.030 Bee allergy status
CPT/HCPCS: 25609; 76000; 87641; A9270; J0690; J1170; J1885; J2001; J2250; J2405; J2704; J3010; J3490; J7120; 01830; C1713; C1776

== ENCOUNTER 2019-02-11 09:28 | Emergency (ER) | payer BC ==
[2019-02-11 09:37] VITALS: BP 160/104; PULSE 64
[2019-02-11] MEDS ORDERED: Lidocaine 1% 10 ML MDV INJECT ONE (09:52)
--- NOTE | 2019-02-11 09:54 | EDM.PDOC ---
ED HPI GENERAL MEDICAL PROBLEM - General Chief Complaint: Laceration Stated Complaint: LT POINTER FINGER LAC Time Seen by Provider: 02/11/19 09:48 Source of Information: Reports: Patient, Family (spoue) History Limitations: Reports: No Limitations - History of Present Illness INITIAL COMMENTS - FREE TEXT/NARRATIVE: 52-year-old male reports to the ED this morning after an acute injury to the volar aspect of his left index finger. States he was pulling a sharp knife out of a sheath with its was difficult to do so and the laceration occurred when the blade came in contact with the volar aspect of his left index finger particularly over the PIP DIP joint. He feels a little numbness and tingling on both sides of the distal aspect of the finger. However clinically the flexor tendons are intact. He's not sure when his last tetanus toxoid was. Onset: Today, Sudden Onset Date: 02/11/19 Onset Time: 09:15 Duration: Minutes: Location: Reports: Upper Extremity, Left Quality: Reports: Ache (Left volar index finger.), Throbbing Severity: Moderate Improves with: Reports: None Worsens with: Reports: None Context: Reports: Trauma (Laceration with a sharp knife). 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 (see below) (None.) Left Finger-Index Pain Score (Numeric/FACES): 5 - Related Data Allergies Allergy/AdvReac Type Severity Reaction Status Date / Time bee venom protein (honey bee) Allergy Anaphylactic Verified 02/11/19 09:37 Shock Home Meds: Home Meds EPINEPHrine [Epipen] 0.3 mg IM ASDIRECTED PRN 11/11/18 [History] Levothyroxine Sodium [Synthroid] 175 mcg PO DAILY 11/11/18 [History] Past Medical History HEENT History: Reports: Hard of Hearing, Impaired Vision Other HEENT History: glasses, has hearing aids Cardiovascular History: Reports: None Respiratory History: Reports: None Gastrointestinal History: Reports: Other (See Below) Other Gastrointestinal History: diverticulitis Genitourinary History: Reports: None 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 Other Musculoskeletal History: left hand surgery as a child Neurological History: Reports: None Psychiatric History: Reports: None Endocrine/Metabolic History: Reports: Hyperthyroidism Hematologic History: Reports: None Immunologic History: Reports: None Oncologic (Cancer) History: Reports: None Dermatologic History: Reports: None - Past Surgical History HEENT Surgical History: Reports: Naso-Sinus Surgery Cardiovascular Surgical History: Reports: None Respiratory Surgical History: Reports: None GI Surgical History: Reports: Hernia, Abdominal Female Surgical History: Reports: None Male Surgical History: Reports: None Endocrine Surgical History: Reports: None Neurological Surgical History: Reports: None Musculoskeletal Surgical History: Reports: ORIF, Shoulder Surgery Oncologic Surgical History: Reports: None Social & Family History - Family History Family Medical History: Noncontributory - Caffeine Use Caffeine Use: Reports: Coffee - Living Situation & Occupation Living situation: Reports: , with Spouse Occupation: Employed ED ROS GENERAL - Review of Systems Review Of Systems: See Below Constitutional: Reports: No Symptoms HEENT: Reports: No Symptoms Respiratory: Reports: No Symptoms Cardiovascular: Reports: No Symptoms, Palpitations GI/Abdominal: Reports: No Symptoms Musculoskeletal: Reports: Other (Acute injury to the left index finger.) Skin: Reports: No Symptoms Neurological: Reports: No Symptoms (Laceration left index finger) Psychiatric: Reports: No Symptoms Hematologic/Lymphatic: Reports: No Symptoms Immunologic: Reports: No Symptoms ED EXAM, SKIN/RASH Exam: See Below Exam Limited By: No Limitations General Appearance: Alert, WD/WN, Mild Distress, Other (Vital signs are stable other than blood pressure 160/104.) Eye Exam: Bilateral Eye: Normal Inspection Respiratory/Chest: No Respiratory Distress, Lungs Clear, Normal Breath Sounds, No Accessory Muscle Use Cardiovascular: Normal Peripheral Pulses, Regular Rate, Rhythm, No Edema, No Gallop, No Murmur, No Rub Peripheral Pulses: 3+: Posterior Tibial (L), Posterior Tibial (R), Dorsalis Pedis (L), Dorsalis Pedis (R) GI/Abdominal: Normal Bowel Sounds, Soft, Non-Tender, No Organomegaly, No Abnormal Bruit, No Mass, Pelvis Stable Extremities: Other (He has a 2-2.5 cm laceration it traverses the PIP joint of his left index finger volarly.) Neurological: Alert ( Clinically the flexor tendons are intact. He has slight numbness distal aspect of the finger particularly on the ulnar aspect. Of note he is right-hand dominant.), Oriented, CN II-XII Intact, Normal Cognition, Normal Gait Psychiatric: Normal Affect, Normal Mood Skin: Warm, Dry, Normal Color, No Rash, Other (Laceration volar aspect left index finger over the PIP joint.) Location, Skin: Upper Extremity, Left (Left volar aspect second finger) ED SKIN PROCEDURES - Laceration/Wound Repair Left Midline Distal Ventral Digit - 2nd (Index) Appearance: Subcutaneous, Clean Distal NVT: Neuro & Vascular Intact Local Anesthesia - Lidocaine (Xylocaine): 1% Plain Local Anesthetic Volume: 4cc Skin Prep: Chlorhexidine (Hibiciens), Saline Exploration/Debridement/Repair: Wound Explored, Other (No obvious flexor tendon involvement identified.) Closed with: Sutures Lac/Wound length In cm: 2.5 Suture Size: 4-0 # of Sutures: 6 (2.5 cm in length.) Suture Type: Nylon, Interrupted, Simple Course - Vital Signs Last Recorded V/S: Last Vital Signs Temp 36.8 C 02/11/19 09:34 Pulse 64 02/11/19 09:34 Resp 18 02/11/19 09:34 BP 160/104 H 02/11/19 09:34 Pulse Ox 97 02/11/19 09:34 - Orders/Labs/Meds Meds: Medications Discontinued Medications Generic Name Dose Route Start Last Admin Trade Name Freq PRN Reason Stop Dose Admin Lidocaine HCl 10 ml 02/11/19 09:52 02/11/19 10:51 Xylocaine 1% INJECT 02/11/19 09:53 10 ml ONETIME ONE Administration - Radiology Interpretation Free Text/Narrative:: 1.5-2 cm laceration across the PIP joint of the volar aspect of his left index finger. Will require laceration repair. Order placed for lidocaine 1% non- buffered and be given a tetanus diphtheria and pertussis vaccination update. Upon entering the data for a tetanus diphtheria and pertussis vaccination 83 reveals that he had one in 2018 and therefore is up-to-date. - Re-Assessments/Exams Free Text/Narrative Re-Assessment/Exam: 02/11/19 10:48 found out that his TDap is up-to-date. Wound was cleansed and then sutured 6 with 4-0 Ethilon. Treatment at home is daily cleanse the wound was soap and water. She topical antibodies such as bacitracin or Polysporin to be applied once daily. Sutures are to be removed in 10 days' time. Departure - Departure Time of Disposition: 10:49 Disposition: Home, Self-Care 01 Condition: Fair Clinical Impression: Laceration of left index finger Qualifiers: Encounter type: initial encounter Damage to nail status: without damage Foreign body presence: without foreign body Qualified Code(s): S61.211A - Laceration without foreign body of left index finger without damage to nail, initial encounter - Discharge Information *PRESCRIPTION DRUG MONITORING PROGRAM REVIEWED*: Not Applicable *COPY OF PRESCRIPTION DRUG MONITORING REPORT IN PATIENT NICHOLAS: Not Applicable Instructions: Laceration Care, Adult, Sutured Wound Care Referrals: Antony Timmons MD [Primary Care Provider] - Forms: ED Department Discharge Additional Instructions: Laceration to the volar aspect of the DIP joint left index finger from a sharp knife this morning. The knife was clean and therefore tetanus risk is considered to be very low. Investigations revealed that her last tetanus toxoid was given in December 2017. Therefore you up-to-date. Was cleansed and then sutured under local anesthetic 66 with 4-0 Ethilon sutures. Treatment at home is to daily cleanse wound with soap and water. Showering is okay. Wound should not be soaked under water until the sutures are removed. Daily cleanse the wound and then apply topical antibiotic such as bacitracin or Polysporin once daily and a bandage to keep clean. She'll need to be removed by her primary care physician in 10 days' time please make an appointment to have this carried out. Since milligrams every 6 hours if needed for pain relief.
== END 2019-02-11 11:00 | disposition home or self-care (01) ==
LOC: JD.ED 09:28
DX: S61.211A Laceration without foreign body of left index finger without damage to nail, initial encounter (principal); H91.93 Unspecified hearing loss, bilateral; Z91.030 Bee allergy status; W26.0XXA Contact with knife, initial encounter; Y93.89 Activity, other specified
CPT/HCPCS: 12001; 99283; J2001; 99282

== ENCOUNTER 2019-07-27 15:44 | Emergency (ER) | payer BC ==
--- NOTE | 2019-07-27 16:12 | EDM.PDOC ---
ED HPI GENERAL MEDICAL PROBLEM - General Chief Complaint: Abdominal Pain Stated Complaint: ABDOMINAL PAIN Time Seen by Provider: 07/27/19 15:49 Source of Information: Reports: Patient History Limitations: Reports: No Limitations - History of Present Illness INITIAL COMMENTS - FREE TEXT/NARRATIVE: The patient presents with left lower abdominal pain. This started a few days ago. It feels like diverticulitis that he had a few years ago. He has no nausea, vomiting or diarrhea. He has no fever, chills, cough, congestion, runny nose, chest pain, dysuria or hematuria. Onset: Gradual Duration: Day(s): Location: Reports: Abdomen Quality: Reports: Sharp Severity: Moderate Improves with: Reports: None Worsens with: Reports: None Associated Symptoms: Reports: No Other Symptoms Abdominal Pain Score (Numeric/FACES): 6 - Related Data Allergies Allergy/AdvReac Type Severity Reaction Status Date / Time bee venom protein (honey bee) Allergy Anaphylactic Verified 07/27/19 15:48 Shock Home Meds: Home Meds EPINEPHrine [Epipen] 0.3 mg IM ASDIRECTED PRN 11/11/18 [History] Levothyroxine Sodium [Synthroid] 175 mcg PO DAILY 11/11/18 [History] Amoxicillin/Potassium Clav [Augmentin 875-125 Tablet] 1 each PO BID #20 tablet 07/27/19 [Rx] Past Medical History HEENT History: Reports: Hard of Hearing, Impaired Vision Other HEENT History: glasses, has hearing aids Cardiovascular History: Reports: None Respiratory History: Reports: None Gastrointestinal History: Reports: Other (See Below) Other Gastrointestinal History: diverticulitis Genitourinary History: Reports: None 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 Musculoskeletal History: Reports: Fracture Other Musculoskeletal History: left hand surgery as a child Neurological History: Reports: None Psychiatric History: Reports: None Endocrine/Metabolic History: Reports: Hyperthyroidism Hematologic History: Reports: None Immunologic History: Reports: None Oncologic (Cancer) History: Reports: None Dermatologic History: Reports: None - Infectious Disease History Infectious Disease History: Reports: Chicken Pox - Past Surgical History HEENT Surgical History: Reports: Naso-Sinus Surgery Cardiovascular Surgical History: Reports: None Respiratory Surgical History: Reports: None GI Surgical History: Reports: Hernia, Abdominal Male Surgical History: Reports: None Endocrine Surgical History: Reports: None Neurological Surgical History: Reports: None Musculoskeletal Surgical History: Reports: ORIF, Shoulder Surgery Oncologic Surgical History: Reports: None Social & Family History - Family History Family Medical History: Noncontributory - Tobacco Use Smoking Status *Q: Never Smoker Second Hand Smoke Exposure: No - Caffeine Use Caffeine Use: Reports: Coffee - Recreational Drug Use Recreational Drug Use: No - Living Situation & Occupation Living situation: Reports: , with Spouse Occupation: Employed ED ROS GENERAL - Review of Systems Review Of Systems: See Below Constitutional: Reports: No Symptoms HEENT: Reports: No Symptoms Respiratory: Reports: No Symptoms Cardiovascular: Reports: No Symptoms Endocrine: Reports: No Symptoms GI/Abdominal: Reports: Abdominal Pain. Denies: Diarrhea, Nausea, Vomiting : Reports: No Symptoms Musculoskeletal: Reports: No Symptoms ED EXAM, GI/ABD - Physical Exam Exam: See Below Exam Limited By: No Limitations General Appearance: Alert, No Apparent Distress Ears: Normal External Exam Nose: Normal Inspection Head: Atraumatic, Normocephalic Neck: Normal Inspection Respiratory/Chest: No Respiratory Distress, Lungs Clear, Normal Breath Sounds Cardiovascular: Regular Rate, Rhythm, No Edema, No Murmur GI/Abdominal Exam: Soft, No Organomegaly, No Mass, Tender (Mild to moderate tenderness to the left lower abdomen) Course - Vital Signs Last Recorded V/S: Last Vital Signs Temp 98.2 F 07/27/19 15:49 Pulse 76 07/27/19 15:49 Resp 18 07/27/19 15:49 BP 138/88 07/27/19 15:49 Pulse Ox 95 07/27/19 15:49 - Re-Assessments/Exams Free Text/Narrative Re-Assessment/Exam: 07/27/19 16:09 I talked about getting labs and a CT. This feels like his last diverticulitis. He would like to be just treated instead. I am okay with that. I will get him on some augmentin. Departure - Departure Time of Disposition: 16:10 Disposition: Home, Self-Care 01 Condition: Good Clinical Impression: Diverticulitis - Discharge Information *PRESCRIPTION DRUG MONITORING PROGRAM REVIEWED*: Not Applicable *COPY OF PRESCRIPTION DRUG MONITORING REPORT IN PATIENT NICHOLAS: Not Applicable Prescriptions: Amoxicillin/Potassium Clav [Augmentin 875-125 Tablet] 1 each PO BID #20 tablet Referrals: Antony Timmons MD [Primary Care Provider] - 1 Week Additional Instructions: Drink plenty of fluids. Take the augmentin 1 pill 2 times per day for 10 days. Take tylenol or motrin for any pain. Please return if you are worse. Sepsis Event Note - Evaluation Sepsis Screening Result: No Definite Risk - Focused Exam Vital Signs: Vital Signs Temp Pulse Resp BP Pulse Ox 07/27/19 15:49 98.2 F 76 18 138/88 95 Date Exam was Performed: 07/27/19 Time Exam was Performed: 16:07
[2019-07-27 16:22] VITALS: BP 127/84; PULSE 74
== END 2019-07-27 16:18 | disposition home or self-care (01) ==
LOC: JD.ED 15:44
DX: K57.92 Diverticulitis of intestine, part unspecified, without perforation or abscess without bleeding (principal); Z91.030 Bee allergy status; E05.90 Thyrotoxicosis, unspecified without thyrotoxic crisis or storm; Z79.899 Other long term (current) drug therapy
CPT/HCPCS: 99283

== ENCOUNTER 2019-08-29 13:05 | Emergency (ER) | payer BC ==
[2019-08-29 13:26] VITALS: BP 135/86; PULSE 93
[2019-08-29] MEDS ORDERED: Famotidine 20 MG Tab PO ONE (13:39)
[2019-08-29] MEDS ORDERED: predniSONE 20 MG Tab PO ONE (13:40)
--- NOTE | 2019-08-29 13:47 | EDM.PDOC ---
ED HPI GENERAL MEDICAL PROBLEM - General Chief Complaint: Bite:Animal, Insect Stated Complaint: INSECT BITE FACIAL SWELLING Time Seen by Provider: 08/29/19 13:19 Source of Information: Reports: Patient History Limitations: Reports: No Limitations - History of Present Illness INITIAL COMMENTS - FREE TEXT/NARRATIVE: The patient presents with left sided facial swelling. This started just prior to arrival. He was out working with a calve on his horse and may have been hit or stung by a bee. He did not feel anything but he noted the left side of his face and lips were swelling up. 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 He did take his epipen and benadryl and it did help with the swelling. The swelling is down now. He has no shortness of breath and no trouble swallowing. He has no rash. Onset: Sudden Duration: Minutes: Location: Reports: Face Severity: Mild Improves with: Reports: None Worsens with: Reports: None Associated Symptoms: Reports: No Other Symptoms - Related Data Allergies Allergy/AdvReac Type Severity Reaction Status Date / Time bee venom protein (honey bee) Allergy Severe Anaphylactic Verified 08/29/19 13: 23 Shock Home Meds: Home Meds EPINEPHrine [Epipen] 0.3 mg IM ASDIRECTED PRN 11/11/18 [History] Levothyroxine Sodium [Synthroid] 175 mcg PO DAILY 11/11/18 [History] Aspirin 1 tab PO DAILY 08/29/19 [History] EPINEPHrine [Epipen 2-Jesus] 0.3 mg IJ ONETIME PRN #1 auto.injct 08/29/19 [Rx] Rosuvastatin Calcium [Crestor] 0.5 tab PO DAILY 08/29/19 [History] predniSONE [Prednisone] 40 mg PO DAILY #10 tablet 08/29/19 [Rx] Past Medical History HEENT History: Reports: Hard of Hearing, Impaired Vision Other HEENT History: glasses, has hearing aids Cardiovascular History: Reports: None Respiratory History: Reports: None Gastrointestinal History: Reports: Other (See Below) Other Gastrointestinal History: diverticulitis Genitourinary History: Reports: None 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 Musculoskeletal History: Reports: Fracture Other Musculoskeletal History: left hand surgery as a child Neurological History: Reports: None Psychiatric History: Reports: None Endocrine/Metabolic History: Reports: Hyperthyroidism Hematologic History: Reports: None Immunologic History: Reports: None Oncologic (Cancer) History: Reports: None Dermatologic History: Reports: None - Infectious Disease History Infectious Disease History: Reports: Chicken Pox - Past Surgical History HEENT Surgical History: Reports: Naso-Sinus Surgery Cardiovascular Surgical History: Reports: None Respiratory Surgical History: Reports: None GI Surgical History: Reports: Hernia, Abdominal Male Surgical History: Reports: None Endocrine Surgical History: Reports: None Neurological Surgical History: Reports: None Musculoskeletal Surgical History: Reports: ORIF, Shoulder Surgery Oncologic Surgical History: Reports: None Social & Family History - Family History Family Medical History: Noncontributory - Tobacco Use Smoking Status *Q: Former Smoker Used Tobacco, but Quit: Yes Month/Year Tobacco Last Used: 08/1993 - Caffeine Use Caffeine Use: Reports: Coffee - Recreational Drug Use Recreational Drug Use: No - Living Situation & Occupation Living situation: Reports: , with Spouse Occupation: Employed ED ROS GENERAL - Review of Systems Review Of Systems: See Below Constitutional: Reports: No Symptoms HEENT: Reports: Other (Left facial swelling) Respiratory: Reports: No Symptoms Cardiovascular: Reports: No Symptoms Endocrine: Reports: No Symptoms GI/Abdominal: Reports: No Symptoms : Reports: No Symptoms Musculoskeletal: Reports: No Symptoms ED EXAM, ANIMAL BITE - Physical Exam Exam: See Below Exam Limited By: No Limitations General Appearance: Alert, No Apparent Distress Ears: Normal External Exam Nose: Normal Inspection Throat/Mouth: Normal Inspection Head: Atraumatic, Other (Left sided facial swelling) Neck: Normal Inspection, Supple, Non-Tender Respiratory/Chest: No Respiratory Distress, Lungs Clear, Normal Breath Sounds Cardiovascular: Regular Rate, Rhythm, No Edema, No Murmur Course - Vital Signs Last Recorded V/S: Last Vital Signs Temp 97.8 F 08/29/19 13:18 Pulse 93 08/29/19 13:18 Resp 20 08/29/19 13:18 BP 135/86 08/29/19 13:18 Pulse Ox 97 08/29/19 13:18 - Orders/Labs/Meds Orders: Active Orders 24 hr Category Date Time Status Famotidine [Pepcid] Med 08/29/19 13:39 Once 20 mg PO ONETIME ONE predniSONE Med 08/29/19 13:40 Once 40 mg PO ONETIME ONE Medication Orders Famotidine (Pepcid) 20 mg PO ONETIME ONE Stop: 08/29/19 13:40 Prednisone (Prednisone) 40 mg PO ONETIME ONE Stop: 08/29/19 13:41 Meds: Medications Generic Name Dose Route Start Last Admin Trade Name Freq PRN Reason Stop Dose Admin Famotidine 20 mg 08/29/19 13:39 Pepcid PO 08/29/19 13:40 ONETIME ONE Prednisone 40 mg 08/29/19 13:40 Prednisone PO 08/29/19 13:41 ONETIME ONE - Re-Assessments/Exams Free Text/Narrative Re-Assessment/Exam: 08/29/19 13:44 I ordered prednisone and pepcid. I will get him a prescription for prednisone and a refill no his epipen. Departure - Departure Time of Disposition: 13:45 Disposition: Home, Self-Care 01 Condition: Good Clinical Impression: Allergic reaction Qualifiers: Encounter type: initial encounter Qualified Code(s): T78.40XA - Allergy, unspecified, initial encounter - Discharge Information *PRESCRIPTION DRUG MONITORING PROGRAM REVIEWED*: Not Applicable *COPY OF PRESCRIPTION DRUG MONITORING REPORT IN PATIENT NICHOLAS: Not Applicable Prescriptions: EPINEPHrine [Epipen 2-Jesus] 0.3 mg IJ ONETIME PRN #1 auto.injct PRN Reason: Allergies predniSONE [Prednisone] 40 mg PO DAILY #10 tablet Referrals: Antony Timmons MD [Primary Care Provider] - 1 Week Additional Instructions: Take the prednisone daily for 5 days. Take pepcid daily for 5 days. Take benadryl 50mg every 6 hours as needed for swelling or allergic reaction. Use the epipen as needed for allergic reaction. Please return if you are worse. Sepsis Event Note (ED) - Evaluation Sepsis Screening Result: No Definite Risk - Focused Exam Vital Signs: Vital Signs Temp Pulse Resp BP Pulse Ox 08/29/19 13:18 97.8 F 93 20 135/86 97 - My Orders Last 24 Hours: My Active Orders 08/29/19 13:39 Famotidine [Pepcid] 20 mg PO ONETIME ONE 08/29/19 13:40 predniSONE 40 mg PO ONETIME ONE - Assessment/Plan Last 24 Hours: My Active Orders 08/29/19 13:39 Famotidine [Pepcid] 20 mg PO ONETIME ONE 08/29/19 13:40 predniSONE 40 mg PO ONETIME ONE
== END 2019-08-29 14:15 | disposition home or self-care (01) ==
LOC: JD.ED 13:05
DX: T78.40XA Allergy, unspecified, initial encounter (principal); Z91.030 Bee allergy status; E05.90 Thyrotoxicosis, unspecified without thyrotoxic crisis or storm; Z79.899 Other long term (current) drug therapy; Z79.82 Long term (current) use of aspirin; Z87.891 Personal history of nicotine dependence
CPT/HCPCS: 99283; A9270; J7512

== ENCOUNTER 2020-03-31 05:06 | Emergency (ER) | payer BC ==
[2020-03-31 05:22] VITALS: BP 129/95
[2020-03-31] MEDS ORDERED: HYDROmorphone 1 MG/ML Syringe IVPUSH STA (05:39)
[2020-03-31] MEDS ORDERED: Ondansetron 4 MG/2 ML SDV IVPUSH ONE (05:39)
--- NOTE | 2020-03-31 05:43 | EDM.PDOC ---
<Devang Goldberg Bladimir - Last Filed: 03/31/20 08:34> ED HPI GENERAL MEDICAL PROBLEM - General Chief Complaint: Abdominal Pain Stated Complaint: ABDOMINAL PAIN Time Seen by Provider: 03/31/20 05:18 Source of Information: Reports: Patient, Family () History Limitations: Reports: No Limitations - History of Present Illness INITIAL COMMENTS - FREE TEXT/NARRATIVE: Mr. Ashford is a pleasant 54-year-old gentleman with a past medical history significant for recurrent diverticulitis, who now presents to the ED with progressively worsening left lower quadrant abdominal pain since 03/28/2020. He describes the character of the pain as "a solid pain with occasional sharp". He has not identified any modifiers. No associated fever, nausea, vomiting, constipation, diarrhea, or urinary symptoms. He has not taken any [id number] or home remedies to try to treat his symptoms. He states that his current symptoms are similar to prior episodes of diverticulitis. The patient states that he has undergone 3 colonoscopies, most recently in 2018, with findings of colon polyposis, but no suggestion of colon cancer. The patient states that he last ate around 18:00 last night. Here in the ED, the patient is found to be hemodynamically stable, afebrile, saturating 94% on room air. Prior to Thursday, the patient denies having a recent fever, chills, sore throat, ear pain, nasal or sinus congestion, cough, dyspnea, chest pain, palpitations, nausea, vomiting, constipation, diarrhea, abdominal pain, urinary symptoms, recent weight gain or weight loss, recent bloody bowel movements or black bowel movements, recent joint aches, headaches, or rashes. The patient's PCP is Dr. Antony Timmons. The patient states that he has not been given an influenza vaccine this season, and declined an offer to receive one here in the ED. Left Lower Abdomen Pain Score (Numeric/FACES): 5 - Related Data Allergies Allergy/AdvReac Type Severity Reaction Status Date / Time bee venom protein (honey bee) Allergy Severe Anaphylactic Verified 08/29/19 13:23 Shock Home Meds: Home Meds Levothyroxine Sodium [Synthroid] 175 mcg PO DAILY 11/11/18 [History] Rosuvastatin Calcium [Crestor] 0.5 tab PO DAILY 08/29/19 [History] Acetaminophen/HYDROcodone [Solen 325-5 MG] 1 tab PO Q4H PRN #14 tablet 03/31/20 [Rx] levoFLOXacin [Levaquin] 750 mg PO DAILY #10 tab 03/31/20 [Rx] metroNIDAZOLE [Flagyl] 500 mg PO Q8H #20 tab 03/31/20 [Rx] Past Medical History HEENT History: Reports: Hard of Hearing (wears hearing aids), Impaired Vision (wears glasses) Cardiovascular History: Reports: High Cholesterol Gastrointestinal History: Reports: Colon Polyp, Diverticulosis (diverticulitis) Musculoskeletal History: Reports: Fracture (left hand, right wrist) Endocrine/Metabolic History: Reports: Hypothyroidism (following I-131 thyroid ablation for Grave disease) - Infectious Disease History Infectious Disease History: Reports: Chicken Pox - Past Surgical History HEENT Surgical History: Reports: Naso-Sinus Surgery (Rhinoplasty) GI Surgical History: Reports: Colonoscopy (x 3), Hernia, Abdominal (umbilical) Musculoskeletal Surgical History: Reports: ORIF (right wrist), Shoulder Surgery (right, arthroscopic), Other (See Below) (Left hand pinning as a child) Social & Family History - Tobacco Use Tobacco Use Status *Q: Former Tobacco User Years of Tobacco use: 10 Packs/Tins Daily: 1 Month/Year Tobacco Last Used: Quit 1993 - Caffeine Use Caffeine Use: Reports: Coffee - Alcohol Use Alcohol Use History: Yes Alcohol Use Frequency: Socially - Recreational Drug Use Recreational Drug Use: No - Living Situation & Occupation Living situation: Reports: , with Spouse, with Family (23 yr old daughter) Occupation: Employed ([employer]) ED ROS GENERAL - Review of Systems Review Of Systems: Comprehensive ROS is negative, except as noted in HPI. ED EXAM, GI/ABD - Physical Exam Exam: See Below Exam Limited By: No Limitations General Appearance: Alert, WD/WN, Mild Distress (appears uncomfortable) Eyes: Bilateral: Normal Appearance, EOMI Ears: Normal External Exam, Hearing Grossly Normal Nose: Normal Inspection Throat/Mouth: Normal Inspection, Normal Lips, Normal Voice, No Airway Compromise Head: Atraumatic, Normocephalic Neck: Normal Inspection, Full Range of Motion Respiratory/Chest: No Respiratory Distress, Lungs Clear, Normal Breath Sounds, No Accessory Muscle Use Cardiovascular: Normal Peripheral Pulses, Regular Rate, Rhythm, No Edema, No Gallop, No JVD, No Murmur, No Rub GI/Abdominal Exam: Normal Bowel Sounds, Soft, No Organomegaly, No Distention, No Abnormal Bruit, No Mass, Tender (Left lower quadrant only. Essentially nontender elsewhere.) Back Exam: Normal Inspection, Full Range of Motion. No: CVA Tenderness (L), CVA Tenderness (R) Extremities: Normal Inspection, Normal Range of Motion, No Pedal Edema, Normal Capillary Refill Neurological: Alert, Oriented, Normal Cognition, No Motor/Sensory Deficits Psychiatric: Normal Affect Skin Exam: Warm, Dry, Intact, Normal Color, No Rash Course - Re-Assessments/Exams Free Text/Narrative Re-Assessment/Exam: 03/31/20 05:40 As above, the patient has had progressively worsening left lower quadrant abdominal pain since 03/28/2020. No other symptoms. He is tender to the left lower quadrant, with no significant tenderness elsewhere. His history and physical examination are most consistent with a recurrence of diverticulitis. I have ordered a work-up that includes several blood tests, a urinalysis, and a CT of the abdomen and pelvis with oral and IV contrast to evaluate. As he may require admission to the hospital, I will also order a swab for the SARS-CoV-2 virus.In the meantime, the patient will be given IV fluid, IV Dilaudid, and IV Zofran. 03/31/20 08:34 The patient's CBC is remarkable for a WBC count slightly elevated at 10.47, but with 0% bandemia, and the remainder of his CBC being unremarkable. His CMP is remarkable for an anion gap slightly elevated at 16.1, but with a bicarbonate normal at 26. His BUN is slightly elevated 21 with a Cr normal at 1.1, and the remainder of his CMP being unremarkable. His magnesium level is within normal limits at 2.1. His urinalysis is unremarkable. Results of the CT of his abdomen and pelvis with oral and IV contrast are still pending. Case discussed with Dr. Gustafson, and care of the patient turned over to him at this time, for change of shift. Departure - Departure Disposition: Home, Self-Care 01 Clinical Impression: Diverticulitis large intestine Qualifiers: Diverticulitis bleeding: without bleeding Diverticulitis complication: without perforation or abscess Qualified Code(s): K57.32 - Diverticulitis of large intestine without perforation or abscess without bleeding - Discharge Information Prescriptions: metroNIDAZOLE [Flagyl] 500 mg PO Q8H #20 tab levoFLOXacin [Levaquin] 750 mg PO DAILY #10 tab Acetaminophen/HYDROcodone [Solen 325-5 MG] 1 tab PO Q4H PRN #14 tablet PRN Reason: Pain Instructions: Diverticulitis, [id number] Referrals: Antony Timmons MD [Primary Care Provider] - Forms: ED Department Discharge Additional Instructions: Clear liquids and bland diet as tolerated. Levaquin 750 mg daily for 10 days. Flagyl 500 mg 3 times daily for 1 week. Tylenol for mild to moderate pain or hydrocodone if needed for severe pain. Prescriptions have been sent to [facility]. Stool softner twice daily recomended when taking the pain pills. Follow up with your regular provider in about 5 to 6 days for recheck. Call for appt. Colonoscopy recomended if you have not yet had that done. Discuss that with your provider. Return to ED as needed if symptoms worsening in any way. Sepsis Event Note (ED) - Evaluation Sepsis Screening Result: No Definite Risk <Colin Gustafson - Last Filed: 03/31/20 11:30> Course - Vital Signs Last Recorded V/S: Last Vital Signs Temp 97.9 F 03/31/20 05:19 Pulse 72 03/31/20 05:19 Resp 15 03/31/20 05:19 BP 129/95 H 03/31/20 05:19 Pulse Ox 94 L 03/31/20 05:19 - Orders/Labs/Meds Orders: Active Orders 24 hr Category Date Time Status Sodium Chloride 0.9% [Normal Saline] 1,000 ml Med 03/31/20 05:45 Active IV ASDIRECTED Medication Orders Sodium Chloride (Normal Saline) 1,000 mls @ 150 mls/hr IV ASDIRECTED TERENCE Last Admin: 03/31/20 05:50 Dose: 150 mls/hr Documented by: PRIMITIVO Labs: Laboratory Tests 03/31/20 03/31/20 03/31/20 Range/Units 05:54 05:54 07:40 WBC 10.47 H (4.23-9.07) K/mm3 RBC 5.23 (4.63-6.08) M/mm3 Hgb 14.9 (13.7-17.5) gm/dl Hct 44.6 (40.1-51.0) % MCV 85.3 (79.0-92.2) fl MCH 28.5 (25.7-32.2) pg MCHC 33.4 (32.2-35.5) g/dl RDW Std Deviation 41.5 (35.1-43.9) fL Plt Count 257 (163-337) K/mm3 MPV 9.5 (9.4-12.3) fl Neutrophils % (Manual) 83 H (40-60) % Band Neutrophils % 0 (0-10) % Lymphocytes % (Manual) 5 L (20-40) % Atypical Lymphs % 0 % Monocytes % (Manual) 12 H (2-10) % Eosinophils % (Manual) 0 L (0.8-7.0) % Basophils % (Manual) 0 L (0.2-1.2) Platelet Estimate Adequate RBC Morph Comment Normal Sodium 142 (136-145) mEq/L Potassium 4.1 (3.5-5.1) mEq/L Chloride 104 (98-107) mEq/L Carbon Dioxide 26 (21-32) mEq/L Anion Gap 16.1 H (5-15) BUN 21 H (7-18) mg/dL Creatinine 1.1 (0.7-1.3) mg/dL Est Cr Clr Drug Dosing 86.76 mL/min Estimated GFR (MDRD) > 60 (>60) mL/min BUN/Creatinine Ratio 19.1 H (14-18) Glucose 92 (74-106) mg/dL Calcium 9.2 (8.5-10.1) mg/dL Magnesium 2.1 (1.8-2.4) mg/dl Total Bilirubin 0.6 (0.2-1.0) mg/dL AST 18 (15-37) U/L ALT 34 (16-63) U/L Alkaline Phosphatase 68 (46-116) U/L Total Protein 7.6 (6.4-8.2) g/dl Albumin 3.9 (3.4-5.0) g/dl Globulin 3.7 gm/dL Albumin/Globulin Ratio 1.1 (1-2) Urine Color Yellow (Yellow) Urine Appearance Clear (Clear) Urine pH 5.5 (5.0-8.0) Ur Specific [place] > or = 1.030 (1.005-1.030) Urine Protein Negative (Negative) Urine Glucose (UA) Negative (Negative) Urine Ketones Negative (Negative) Urine Occult Blood Negative (Negative) Urine Nitrite Negative (Negative) Urine Bilirubin Negative (Negative) Urine Urobilinogen 0.2 (0.2-1.0) Ur Leukocyte Esterase Negative (Negative) Urine RBC Not seen (0-5) /hpf Urine WBC 0-5 (0-5) /hpf Ur Squamous Epith Cells 0-5 (0-5) /hpf Urine Bacteria Not seen (FEW) /hpf Urine Mucus Not seen (FEW) /hpf SARS-CoV-2 RNA (PRAMOD) (NEGATIVE) 03/31/20 Range/Units 08:10 WBC (4.23-9.07) K/mm3 RBC (4.63-6.08) M/mm3 Hgb (13.7-17.5) gm/dl Hct (40.1-51.0) % MCV (79.0-92.2) fl MCH (25.7-32.2) pg MCHC (32.2-35.5) g/dl RDW Std Deviation (35.1-43.9) fL Plt Count (163-337) K/mm3 MPV (9.4-12.3) fl Neutrophils % (Manual) (40-60) % Band Neutrophils % (0-10) % Lymphocytes % (Manual) (20-40) % Atypical Lymphs % % Monocytes % (Manual) (2-10) % Eosinophils % (Manual) (0.8-7.0) % Basophils % (Manual) (0.2-1.2) Platelet Estimate RBC Morph Comment Sodium (136-145) mEq/L Potassium (3.5-5.1) mEq/L Chloride (98-107) mEq/L Carbon Dioxide (21-32) mEq/L Anion Gap (5-15) BUN (7-18) mg/dL Creatinine (0.7-1.3) mg/dL Est Cr Clr Drug Dosing mL/min Estimated GFR (MDRD) (>60) mL/min BUN/Creatinine Ratio (14-18) Glucose (74-106) mg/dL Calcium (8.5-10.1) mg/dL Magnesium (1.8-2.4) mg/dl Total Bilirubin (0.2-1.0) mg/dL AST (15-37) U/L ALT (16-63) U/L Alkaline Phosphatase (46-116) U/L Total Protein (6.4-8.2) g/dl Albumin (3.4-5.0) g/dl Globulin gm/dL Albumin/Globulin Ratio (1-2) Urine Color (Yellow) Urine Appearance (Clear) Urine pH (5.0-8.0) Ur Specific [place] (1.005-1.030) Urine Protein (Negative) Urine Glucose (UA) (Negative) Urine Ketones (Negative) Urine Occult Blood (Negative) Urine Nitrite (Negative) Urine Bilirubin (Negative) Urine Urobilinogen (0.2-1.0) Ur Leukocyte Esterase (Negative) Urine RBC (0-5) /hpf Urine WBC (0-5) /hpf Ur Squamous Epith Cells (0-5) /hpf Urine Bacteria (FEW) /hpf Urine Mucus (FEW) /hpf SARS-CoV-2 RNA (PRAMOD) Negative (NEGATIVE) Meds: Medications Generic Name Dose Route Start Last Admin Trade Name Freragini PRN Reason Stop Dose Admin Sodium Chloride 1,000 mls @ 150 mls/hr 03/31/20 05:45 03/31/20 05:50 Normal Saline IV 150 mls/hr ASDIRECTED TERENCE Administration Discontinued Medications Generic Name Dose Route Start Last Admin Trade Name Susi PRN Reason Stop Dose Admin Diatrizoate Meglum/Diatrizoate Sod 60 ml 03/31/20 08:40 03/31/20 08:53 Gastrografin 37% PO 03/31/20 08:41 60 ml ONETIME ONE Administration Hydromorphone HCl 1 mg 03/31/20 05:39 03/31/20 05:52 Dilaudid IVPUSH 03/31/20 05:40 1 mg ONETIME STA Administration Hydromorphone HCl Confirm 03/31/20 10:32 03/31/20 10:37 Dilaudid Administered 03/31/20 10:33 Not Given Dose 0.5 mg .ROUTE .STK-MED ONE Hydromorphone HCl 0.5 mg 03/31/20 10:36 03/31/20 10:38 Dilaudid IVPUSH 03/31/20 10:37 0.5 mg ONETIME ONE Administration Iopamidol 100 ml 03/31/20 08:40 03/31/20 08:54 Isovue-300 (61%) IVPUSH 03/31/20 08:41 100 ml ONETIME ONE Administration Iopamidol 25 ml 03/31/20 08:41 03/31/20 08:55 Isovue-300 (61%) IVPUSH 03/31/20 08:42 25 ml ONETIME ONE Administration Ondansetron HCl 4 mg 03/31/20 05:39 03/31/20 05:51 Zofran IVPUSH 03/31/20 05:40 4 mg ONETIME ONE Administration - Re-Assessments/Exams Free Text/Narrative Re-Assessment/Exam: 03/31/20 11:01 Have assumed care from Dr Goldberg after change of shift. CT report slow to come and busy ED contributing to prolonged ED length of stay. CT report is now back and does show diverticulitis as expected. Levaquin 750 mg daily for 10 days and Flagyl 500 mg 3 times daily for 1 week. Tylenol q 6 to 8 hr for mild to moderate pain, hydrocodone if needed for more severe pain. Prescriptions have been sent to [facility]. I agree with hx and exam as documented by Dr Goldberg. Departure - Departure Time of Disposition: 11:09 Condition: Fair Sepsis Event Note (ED) - Focused Exam Vital Signs: Vital Signs Temp Pulse Resp BP Pulse Ox 03/31/20 05:19 97.9 F 72 15 129/95 H 94 L
[2020-03-31] MEDS ORDERED: Sodium Chloride 0.9% 1,000 ML IV SCH (05:45)
[2020-03-31] MEDS ORDERED: Diatrizoate Meglumine/Diatrizoate Sodium 37% 120 ML Bottle PO ONE (08:40)
[2020-03-31] MEDS ORDERED: Iopamidol 612 MG/ML 100 ML Bottle IVPUSH ONE (08:40)
[2020-03-31] MEDS ORDERED: Iopamidol 612 MG/ML 50 ML SDV IVPUSH ONE (08:41)
--- NOTE | 2020-03-31 09:22 | CT ---
CT abdomen and pelvis Technique: Multiple axial sections were obtained from above the dome of the diaphragm inferiorly through the pubic symphysis. Delayed images were also obtained through the bladder. Reconstructed coronal and sagittal images were obtained. Prior CT abdomen and pelvis exam of 11/12/17. Findings: Focal bowel wall thickening is noted within the sigmoid colon. There is inflammatory change seen around this area of bowel wall thickening. Findings are most likely due to diverticulitis. Given the focal wall thickening, endoscopy is suggested to further evaluate. Visualized lung bases show mild dependent atelectasis posteriorly. Liver contains no focal abnormality. Spleen appears normal. Adrenal glands show no nodule. Pancreas shows no abnormality. Gallbladder contains no calcified gallstones. Kidneys show symmetric contrast enhancement with no hydronephrosis or mass. Aorta shows mild atherosclerotic calcification with no aneurysm. No retroperitoneal adenopathy or mesenteric abnormalities are appreciated. Appendix is seen and appears to be normal in size. No additional pelvic abnormality is appreciated. Delayed images show contrast within the bladder. Bone window settings were reviewed which show scattered degenerative change within the spine. No acute osseous abnormality is appreciated. Impression: 1. Focal bowel wall thickening within the sigmoid colon with surrounding inflammatory change. Findings are most likely due to diverticulitis. Endoscopy is recommended due to the focal nature of this finding to rule out other etiology. 2. Other normal findings as noted above. Diagnostic code #3
[2020-03-31] MEDS ORDERED: HYDROmorphone 0.5 MG/0.5 ML Syringe ONE (10:32)
[2020-03-31] MEDS ORDERED: HYDROmorphone 0.5 MG/0.5 ML Syringe IVPUSH ONE (10:36)
[2020-03-31 11:39] VITALS: PULSE 76
== END 2020-03-31 11:20 | disposition home or self-care (01) ==
LOC: JD.ED 05:06
DX: K57.32 Diverticulitis of large intestine without perforation or abscess without bleeding (principal); E78.00 Pure hypercholesterolemia, unspecified; E03.9 Hypothyroidism, unspecified; Z79.899 Other long term (current) drug therapy; Z91.030 Bee allergy status; Z87.891 Personal history of nicotine dependence; Z20.822 Contact with and (suspected) exposure to COVID-19
CPT/HCPCS: 36415; 74177; 80053; 81001; 83735; 85007; 85027; 87635; 96374; 96375; 96376; 99284; J1170; J2405; J7030; Q9963; Q9967; U0002

== ENCOUNTER 2021-08-16 12:28 | Emergency (ER) | payer BC ==
[2021-08-16 13:00] VITALS: BP 136/90; PULSE 66
[2021-08-16] MEDS ORDERED: Ondansetron 4 MG/2 ML SDV IVPUSH ONE (13:34)
[2021-08-16] MEDS ORDERED: Sodium Chloride 0.9% 10 ML Syringe FLUSH PRN ×2 (13:34→13:45)
[2021-08-16] MEDS ORDERED: Sodium Chloride 0.9% 1,000 ML IV STA (13:34)
[2021-08-16] MEDS ORDERED: HYDROmorphone 0.5 MG/0.5 ML Syringe IVPUSH ONE (13:35)
[2021-08-16] MEDS ORDERED: Iopamidol 612 MG/ML 100 ML Bottle IVPUSH ONE (13:45)
[2021-08-16 14:47] LABS: ESTIMATED GFR > 60 mL/min (>60)
== END 2021-08-16 15:40 | disposition home or self-care (01) ==
LOC: JD.ED 12:28
DX: K52.9 Noninfective gastroenteritis and colitis, unspecified (principal); E78.00 Pure hypercholesterolemia, unspecified; E03.9 Hypothyroidism, unspecified; Z79.899 Other long term (current) drug therapy; Z91.030 Bee allergy status
CPT/HCPCS: 36415; 74177; 80053; 83690; 83735; 85025; 96361; 96374; 96375; 99284; J1170; J2405; J3490; J7030; Q9967